=== PATIENT | male | born 1965 | race Caucasian/White ===

== ENCOUNTER 2018-10-09 22:21 | Emergency (ER) | payer OTHER ==
[~2018-10-09] VITALS: Ht 182.9 cm; Wt 90.7 kg
[~2018-10-09 22:21] MED LIST: COUMADIN5 MG; HYDROCHLOROTH12.5 MG PO; LISINOPRIL20 MG PO; WARFARIN SODIUM4 MG PO
[2018-10-10] MEDS ORDERED: TRAMADOL HCL50 MG PO (01:31)
== END 2018-10-10 01:39 | disposition home or self-care (01) ==
LOC: ED 22:21
DX: M54.5 Low back pain (principal); R10.9 Unspecified abdominal pain; R20.2 Paresthesia of skin; I10 Essential (primary) hypertension; F17.200 Nicotine dependence, unspecified, uncomplicated; Z79.01 Long term (current) use of anticoagulants
CPT/HCPCS: 74177; 80053; 81001; 83690; 85025; 85610; 85730; 99284-25; J1170; J2405; Q9967

== ENCOUNTER 2020-11-20 07:00 | Day surgery (SDC) | payer OTHER ==
[~2020-11-20] VITALS: Ht 190.5 cm; Wt 85.0 kg
[~2020-11-20 07:00] MED LIST changes: +BACLOFEN10 MG PO; +COLACE100 MG PO; +COLLAGEN PLUS1 EACH PO; +GABAPENTIN300 MG PO; +OMEPRAZOLE20 MG PO; +OXYBUTYNIN CHLOR5 MG PO; +TRAMADOL HCL50 MG PO; +VITAMIN B122500 MCG PO; +VITAMIN D325 MC2 PO; +ZANTAC-360 (FAM20 MG PO
--- NOTE | 2020-11-20 09:04 | NUR ---
11/20/20 0904 Nevin Ward 0824 PT ARRIVED TO PACU ON 3L VIA NC, VSS. PT WAKES AND IS REORIENTED TO PACU. PT EASILY FALLS BACK TO SLEEP.
--- NOTE | 2020-11-20 09:54 | OR ---
[facility] [address], [place] [address] Signed DATE OF OPERATION: 11/20/2020 SURGEON: Yareli Pimentel MD PREOPERATIVE DIAGNOSES: 1. Personal history of adenomatous colonic polyps in 2016. 2. Diverticulosis. POSTOPERATIVE DIAGNOSES: 1. 4 mm polyp x1 proximal right colon/opposite ileocecal valve. 2. 5 mm polyp at 35 cm. 3. 3 mm polyps x2 at 8 cm. 4. Minimal to moderate sigmoid diverticulosis. 5. Moderate to significantly enlarged prostate gland (right greater than left). PROCEDURE: Colonoscopy with hot biopsy. ESTIMATED BLOOD LOSS: None. 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 I helped him with his colonoscopy back in 2016. He had multiple adenomatous polyps removed throughout the colon at that time. He also has diverticulosis. He returns now for a followup colonoscopy. He gives no lower GI complaints. There is no family history of colon cancer or polyps. In the office, I gave Malcolm and his a pamphlet on colonoscopy. They remember the test quite well. There is risk including, but not limited to gas bloating, crampy abdominal pain, bleeding, perforation requiring surgery, and missed diagnosis. He has done well with Versed and fentanyl in the past. He had expressed understanding and wished to proceed. PROCEDURE NOTE: Malcolm was taken into our endoscopy suite and placed in the left lateral decubitus position. He was given a total of 8 mg of Versed and 150 mcg of fentanyl to cover the case. A digital rectal exam was performed and he has an impressively enlarged prostate gland given his age. The right is larger than the left. The adult colonoscope was introduced and advanced all around into the cecum under direct visualization of the camera without difficulty. His prep was quite good. We could easily see the appendiceal orifice and the ileocecal valve. The scope was then slowly withdrawn. We Electronically Signed By: YARELI PIMENTEL MD 11/20/20 0954 PATIENT NAME: MALCOLM STYLES OPERATIVE REPORT DATE OF : 61 REPORT #: [id number] PHYSICIAN: YARELI PIMENTEL MD PCP: SAMANTHA AVINA MD REPORT IS CONFIDENTIAL AND NOT TO BE RELEASED WITHOUT AUTHORIZATION [facility] [address] [place] [id number] Signed took pictures throughout for photodocumentation. The above-mentioned polyps were easily removed with the help of hot biopsy forceps. Once again, he has minimal to moderate sigmoid diverticulosis. Upon retroflexion of the scope in the rectum, there was no additional pathology noted above the anal canal. After this, the gas was suctioned out and the colonoscope removed. Vasquez tolerated the procedure quite well. RECOMMENDATIONS: I will see Vasquez back in my office in 7 to 14 days to review his results. He will stay on the 5-year rotation. He can review his prostate exam with his primary care provider. Yareli Pimentel MD ALB/MODL /[id number] cc: MD Yareli Taylor MD Copies: SAMANTHA AVINA DMD, ANDREW L MD ~ Electronically Signed By: YARELI PIMENTEL MD 11/20/20 0954 PATIENT NAME: MALCOLM STYLES OPERATIVE REPORT DATE OF : 61 REPORT #: [id number] PHYSICIAN: YARELI PIMENTEL MD PCP: SAMANTHA AVINA MD REPORT IS CONFIDENTIAL AND NOT TO BE RELEASED WITHOUT AUTHORIZATION
--- NOTE | 2020-11-21 18:07 | PATH ---
[facility] [address], [place] [address] Signed SPECIMEN(S): A COLON POLYP AT 8 CM SPECIMEN(S): B PROXIMAL RIGHT COLON POLYP SPECIMEN(S): C COLON POLYP AT 35 CM SPECIMEN SOURCE: A. COLON POLYP AT 8 CM B. PROXIMAL RIGHT COLON POLYP C. COLON POLYP AT 35 CM CLINICAL HISTORY: Hx of polyps. Post: Colon polyps. MICROSCOPIC DESCRIPTION: Histologic sections of all submitted blocks are examined by light microscopy. These findings, together with the gross examination, support the pathologic diagnosis. FINAL PATHOLOGIC DIAGNOSIS: A. Colon, polyp at 8 cm, polypectomy: - Colonic mucosa with no histopathologic abnormality. - Negative for dysplasia or malignancy. B. Colon, proximal right, polyp, polypectomy: - Tubular adenoma. - Negative for high-grade dysplasia or malignancy. C. Colon, polyp at 35 cm, polypectomy: - Fragments of tubular adenoma. - Negative for high-grade dysplasia or malignancy. COMMENT: Regarding specimen A: Multiple additional deeper levels were examined. NAL:cml:C2NR GROSS DESCRIPTION: Three specimens are received in three containers, labeled "GD." A. The specimen, labeled "GD, colon polyp at 8 cm," is received in formalin and consists of two hart soft tissue fragment(s) that measure 0.1-0.2 cm in greatest dimension. The specimen is entirely submitted in cassette (A1). B. The specimen, labeled "GD, proximal right colon polyp," is received in formalin and consists of one hart soft tissue fragment(s) that measure 0.1 cm in greatest dimension. The specimen is entirely submitted in cassette (B1). PATIENT NAME: KATIE STYLES PATHOLOGY DATE OF : 61 REPORT #: [id number] PHYSICIAN: LISA PATHOLOGY PCP: SAMANTHA AVINA MD REPORT IS CONFIDENTIAL AND NOT TO BE RELEASED WITHOUT AUTHORIZATION [facility] [address] [address] Signed C. The specimen, labeled "GD, colon polyp 5 cm," is received in formalin and consists of two hart soft tissue fragment(s) that measure 0.2 cm in greatest dimension. The specimen is entirely submitted in cassette (C1). JS (under the direct supervision of a pathologist) The Gross Description was prepared using a voice recognition system. The report was reviewed for accuracy; however, sound-alike word errors, addition and/or deletions may occur. If there is any question about this report, please contact Client Services. PERFORMING LABORATORY: The technical component was performed by [facility] [address] (Web Applications Developer: Birdie Ruiz MD; CLIA# [id number]). Professional [facility], [address] [address] (CLIA# [id number]). Diagnostician: Mariaelena Curtis MD Pathologist Electronically Signed 11/21/2020 Copies: ~ PATIENT NAME: KATIE STYLES PATHOLOGY DATE OF : 61 REPORT #: [id number] PHYSICIAN: LISA GARCIA PCP: SAMANTHA AVINA MD REPORT IS CONFIDENTIAL AND NOT TO BE RELEASED WITHOUT AUTHORIZATION
== END 2020-11-20 09:45 | disposition home or self-care (01) ==
LOC: DS 07:00 → OPS 07:00 → DS 07:30 → OPS 07:30
PROVIDERS: ATTEND Colon & Rectal Surgery
PROC: 0DBE8ZX Excision of Large Intestine, Via Natural or Artificial Opening Endoscopic, Diagnostic (ICD-10-PCS; principal; 2020-11-20 07:30)
DX: D12.6 Benign neoplasm of colon, unspecified (principal); K57.30 Diverticulosis of large intestine without perforation or abscess without bleeding; N40.0 Benign prostatic hyperplasia without lower urinary tract symptoms; K21.9 Gastro-esophageal reflux disease without esophagitis; I10 Essential (primary) hypertension; G82.22 Paraplegia, incomplete; F17.220 Nicotine dependence, chewing tobacco, uncomplicated; Z86.711 Personal history of pulmonary embolism; Z87.19 Personal history of other diseases of the digestive system; Z87.81 Personal history of (healed) traumatic fracture; Z86.718 Personal history of other venous thrombosis and embolism; Z88.5 Allergy status to narcotic agent
CPT/HCPCS: 99153; G0500; J2250; J3010; J7121